=== PATIENT | female | born 2000 | race Caucasian/White ===

== ENCOUNTER 2018-08-19 22:48 | Emergency (ER) | payer BC, MEDICAID ==
[2018-08-19] MEDS ORDERED: KETOROLAC 30 MG/ML VIAL IVP ONE (22:55)
[2018-08-19] MEDS ORDERED: ACETAMINOPHEN 500 MG TABLET PO ONE (22:55)
[2018-08-19] MEDS ORDERED: 0.9 % SODIUM CHLORIDE 1000ML 1,000 ML IV SCH (23:00)
[2018-08-19 23:02] LABS: URINE APPEARANCE CLEAR; URINE BILIRUBIN NEGATIVE (NEGATIVE); URINE BLOOD NEGATIVE (NEGATIVE); URINE COLOR YELLOW; URINE GLUCOSE (UA) NEGATIVE (NEGATIVE); URINE KETONE NEGATIVE (NEGATIVE); URINE LEUKOCYTE ESTERASE SMALL (NEGATIVE); URINE NITRITE NEGATIVE (NEGATIVE); URINE PROTEIN NEGATIVE (NEGATIVE); URINE UROBILINOGEN 0.2 E.U./dL (0.20 - 1.00)
--- NOTE | 2018-08-19 23:05 | Emergency Department Record ---
History of Present Illness - General Chief Complaint: Back Pain/Injury Stated Complaint: BACK PAIN, CHILLS Time Seen by Provider: 08/19/18 22:51 Source: Patient Mode of Arrival: Ambulatory Limitations: No limitations - History of Present Illness Initial Comments: 18 yo female presents to ED for evaluation of left sided flank pain symptoms and fever, body aches that began today. Patient denies dysuria symptoms, denies hematuria, and denies previous history of kidney stones. Patient does report previous kidney infection 1 year ago while . Patient denies cough or difficulty in breathing symptoms. Patient denies history of IVDA, denies pre vious back surgery, and denies lower extremity weakness or urinary retention symptoms. Patient denies health problems at her baseline. MD Complaint: Back pain Onset/Timin -: Days(s) Place: Home Radiation: Abdomen Severity: Moderate Quality: Aching Consistency: Constant Improves With: None Worsens With: Deep breaths/cough, Movement Associated Symptoms: Fever/chills, Malaise - Related Data Previous Rx's Medication Instructions Recorded Cephalexin [Keflex] 500 mg PO TID #21 cap 08/19/18 Allergies Allergy/AdvReac Type Severity Reaction Status Date / Time No Known Drug Allergies Allergy Verified 08/19/18 23:12 Review of Systems Constitutional: Reports: Fever, Malaise. Denies: Chills, Night sweats Eyes: Denies: Eye discharge, Eye pain ENT: Denies: Congestion, Ear pain, Epistaxis Respiratory: Denies: Cough, Dyspnea Cardiovascular: Denies: Chest pain, Dyspnea on exertion Endocrine: Denies: Fatigue, Heat or cold intolerance Gastrointestinal: Reports: Abdominal pain. Denies: Constipation, Nausea, Vomiting Genitourinary: Denies: Dysuria, Hematuria, Incontinence, Retention Musculoskeletal: Reports: Back pain. Denies: Arthralgia, Gout Skin: Denies: Bruising, Change in color Neurological: Denies: Abnormal gait, Confusion, Headache, Seizure Psychiatric: Denies: Anxiety Hematological/Lymphatic: Denies: Anemia, Blood Clots Physical Exam - General General Appearance: Alert, Oriented x3, Cooperative, Moderate distress Limitations: No limitations - Head Head exam: Atraumatic, Normocephalic, Normal inspection Head exam detail: negative: Abrasion, Contusion, Sweet's sign, General tenderness, Hematoma, Laceration - Eye Eye exam: Normal appearance. negative: Conjunctival injection, Periorbital swelling, Periorbital tenderness, Scleral icterus - ENT Ear exam: negative: Auricular hematoma, Auricular trauma Nasal Exam: negative: Active bleeding, Discharge, Dried blood, Foreign body Mouth exam: negative: Drooling, Laceration, Muffled voice, Tongue elevation - Neck Neck exam: Normal inspection. negative: Meningismus, Tenderness - Respiratory Respiratory exam: Normal lung sounds bilaterally. negative: Rales, Respiratory distress, Rhonchi, Stridor - Cardiovascular Cardiovascular Exam: Regular rate, Normal rhythm, Normal heart sounds - GI/Abdominal GI/Abdominal exam: Soft. negative: Rebound, Rigid, Tenderness - Rectal Rectal exam: Deferred - exam: Deferred - Extremities Extremities exam: Normal inspection. negative: Pedal edema, Tenderness - Back Back exam: Reports: CVA tenderness (L). Denies: CVA tenderness (R) - Neurological Neurological exam: Alert, Normal gait, Oriented X3 - Psychiatric Psychiatric exam: Normal affect, Normal mood - Skin Skin exam: Normal color. negative: Abrasion Type of lesion: negative: abrasion Course Vital Signs 08/19/18 22:55 Temperature 100.7 F H Pulse Rate [ 92 H Left] Respiratory 16 Rate Blood Pressure 107/65 [Left Arm] Pulse Ox 100 - Reevaluation(s) Reevaluation #1: 08/19/18 23:31 UA was reviewed: RBC: None WBC: 16-20 bacteria: 3+ Squamous cells: 0-2 Rocephin ordered for probable pyelonephritis. The remainder of the patient's labs are pending at this time. Reevaluation #2: 08/19/18 23:45 Laboratory studies were reviewed and are grossly unremarkable for an acute process except for WBC 14.2. No blood is present in the UA result, therefore infected kidney stone seems very unlikely. CT imaging thus does not appears indicated. Patient was reassessed and updated on all results, reports improvement in her symptoms while in the ED. Patient appears stable for outpatient treatment for pyelonephritis with Keflex as directed. Medical Decision Making - Lab Data Result diagrams: 08/19/18 23:05 08/19/18 23:05 Disposition Disposition: Discharge Clinical Impression: Pyelonephritis Disposition: Home, Self-Care Condition: (2) Stable Instructions: Kidney Infection (ED) Additional Instructions: Return to ED if your symptoms worsen or if you have any concerns. Keflex, Tylenol, and Ibuprofen as directed. Follow-up with your family doctor in 1-3 days as directed. Prescriptions: Cephalexin [Keflex] 500 mg PO TID #21 cap Forms: Patient Portal Access Time of Disposition: 23:50 Quality - Quality Measures Quality Measures: N/A - Blood Pressure Screening Does Patient Have Any of the Following: No Blood Pressure Classification: Normal BP Reading Systolic Measurement: 107 Diastolic Measurement: 65 Screening for High Blood Pressure: < Normal BP, F/U Not Required > [G8783]
[2018-08-19 23:19] LABS: URINE BACTERIA 3+; URINE RBC NONE SEEN (NONE SEEN); URINE SQUAMOUS EPITHELIAL CELL 0 - 2 /hpf; URINE WBC 16 - 20 (0-2/hpf)
[2018-08-19 23:20] LABS: HCG,QUALITATIVE URINE NEGATIVE (NEGATIVE)
[2018-08-19 23:24] LABS: ABSOLUTE NEUTROPHIL COUNT 11.89; HEMATOCRIT 32.9 % (35.0-47.0); HEMOGLOBIN 10.9 gm/dl (11.6-16.0); MEAN CELL VOLUME 92.7 fl (81-97); MEAN CORPUSCULAR HEMOGLOBIN 30.7 pg (27-33); MEAN CORPUSCULAR HGB CONC 33.1 g/dl (32-36); MEAN PLATELET VOLUME 11.1 fl (7.4-10.4); PLATELET COUNT 233 K/uL (130-400); RED BLOOD COUNT 3.55 M/uL (3.80-5.40); RED CELL DISTRIBUTION WIDTH 12.9 % (11.5-14.5); WHITE BLOOD COUNT W/O DIFF 14.2 K/uL (4.2-12.2)
[2018-08-19] MEDS ORDERED: CEFTRIAXONE 1GM/50ML BAG 1 GM/50 ML BAG IVPB ONE (23:30)
[2018-08-19] MEDS ORDERED: CEFTRIAXONE 1GM/50ML BAG IVPB ONE (23:34)
[2018-08-19 23:37] LABS: BLOOD UREA NITROGEN 10 mg/dL (6-20); CREATININE 0.7 mg/dL (0.5-0.9); EST GLOMERULAR FILTRATION RATE > 60 mL/min
[2018-08-19 23:38] LABS: TOTAL PROTEIN 6.8 g/dL (6.6-8.7)
[2018-08-19 23:40] LABS: GLUCOSE,RANDOM 116 mg/dL (74-109)
[2018-08-19 23:42] LABS: ALT/SGPT 9 U/L (<33)
[2018-08-19 23:43] LABS: ALB/GLOB RATIO 1.5 (1.1-1.8); ALBUMIN 4.1 g/dL (4.0-5.0); ALKALINE PHOSPHATASE 81 U/L (35-104); AST/SGOT 14 U/L (10.0-35.0)
== END 2018-08-20 00:28 | disposition home or self-care (01) ==
LOC: ER 22:48
DX: N10 Acute pyelonephritis (principal); R30.0 Dysuria
CPT/HCPCS: 99284 ×2; 96374; 96375; 80053; 81001; 81025; 85027; J1885; J0696; J7030